=== PATIENT | male | born 2000 | race Caucasian/White ===

== ENCOUNTER 2023-01-27 15:10 | Emergency (ER) | payer BC, SELFPAY ==
[2023-01-27 15:21] VITALS: BP 163/94; PULSE 93; RESP 16; TEMP 37; O2SAT 99
--- NOTE | 2023-01-27 16:53 | ED.GENADULT ---
HPI - General Adult General Chief complaint: Skin/Abscess/Foreign Body Stated complaint: Foreign Body Left Eye Time Seen by Provider: 01/27/23 16:02 Source: patient Mode of arrival: ambulatory Limitations: no limitations History of Present Illness HPI narrative: This is a 22-year-old male who presents to the ED with chief complaint of left eye irritation beginning around 130 this afternoon. Patient states he was working on a truck when this happened. Reports he was pulling a bolt out with a drill and feels that it may have chipped off and went into the eye. He tried to flush it immediately with water at home which she thinks helped a little bit but he still having irritation. Denies any double vision, vision changes. Related Data Allergies Allergy/AdvReac Type Severity Reaction Status Date / Time No Known Allergies Allergy Verified 01/27/23 15:24 Review of Systems Review of Systems: All systems as dictated in HPI Exam Narrative: GENERAL: Well-appearing, well-nourished, and in no acute distress. HEAD: Normocephalic, atraumatic. EYES: Rolon lamp examination: Corneal abrasion at the 3 o'clock position. There is an obvious foreign body to the upper lateral lid of the left eye. Pressures of the eyes are normal. No rust ring. PERRLA and EOMI. ENT: Nares clear, no rhinorrhea or epistaxis. Mucous membranes moist. Oropharynx without tonsillar hypertrophy exudate or other lesions. NECK: Supple. No adenopathy or masses. CHEST: No respiratory distress. Clear to auscultation. No wheezes rales or rhonchi HEART: Regular rate and rhythm. No murmur heard. Normal peripheral pulses. ABDOMEN: Soft, nontender, nondistended, normal active bowel sounds. MSK: Normal range of motion. No edema. SKIN: Warm, dry, no rash. NEURO: Alert and oriented x3. No focal deficits. PSYCH: Normal mood and affect. Course Vital Signs Vital signs: Vital Signs Temperature 98.6 F 01/27/23 15:21 Pulse Rate 93 01/27/23 15:21 Respiratory Rate 16 01/27/23 15:21 Blood Pressure 163/94 H 01/27/23 15:21 Pulse Oximetry 99 01/27/23 15:21 Temperature 98.6 F 01/27/23 15:21 Pulse Rate 93 01/27/23 15:21 Respiratory Rate 16 01/27/23 17:12 Blood Pressure 163/94 H 01/27/23 15:21 Pulse Oximetry 99 01/27/23 15:21 Procedures FB Removal Eye Foreign Body #1: Foreign Body Removal Date: 01/27/23 Foreign Body Removal Time: 16:55 Time Out performed: No Location: eye (L) Topical anesthetic used: tetracaine Foreign body: metal Evidence of corneal penetration: Yes Technique: irrigation and cotton tip swab Procedure performed under: direct visualization with magnification Patient tolerated procedure: well and no complications Medical Decision Making MDM Narrative Medical decision making narrative: This is a 22-year-old male who presents to the ED for chief concern of a possible foreign body to the left eye. Was working on a car today and feels like a metal piece may be stuck. Exam reveals corneal abrasion and evidence of metallic foreign body in the upper lid. The metallic foreign body was removed during the Rolon lamp examination. Removed with Q-tip without complications. He had immediate symptomatic improvement with the tetracaine. Referral for [facility] for follow-up given. Symptoms consistent with corneal abrasion foreign body. No rust ring. He is not a contact lens wearer. Prescription for ofloxacin drops given. Pt will be discharged in stable condition. Return precautions given and supportive measures discussed. Pt is understanding and agreeable with plan for discharge and follow-up with PCP. Vital Signs Vital Signs: Vital Signs Temperature 98.6 F 01/27/23 15:21 Pulse Rate 93 01/27/23 15:21 Respiratory Rate 16 01/27/23 15:21 Blood Pressure 163/94 H 01/27/23 15:21 Pulse Oximetry 99 01/27/23 15:21 Temperature 98.6 F
[2023-01-27 17:12] VITALS: RESP 16
== END 2023-01-27 17:13 | disposition home or self-care (01) ==
PROVIDERS: Emergency Provider Physician Assistant; PCP Pediatrics Adolescent Medicine
DX: T15.12XA Foreign body in conjunctival sac, left eye, initial encounter (principal); S05.02XA Injury of conjunctiva and corneal abrasion without foreign body, left eye, initial encounter; W44.E9XA Other non-magnetic metal objects entering into or through a natural orifice, initial encounter
CPT/HCPCS: 65205; 99283; A9270

== ENCOUNTER 2023-05-07 21:12 | Emergency (ER) | payer BC, SELFPAY ==
--- NOTE | ~2023-05-07 | XR_ITS ---
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 RESULT: Lines, tubes, and devices: None. Lungs and pleura: Clear. Cardiomediastinal silhouette: Normal. Other: No acute osseous or upper abdominal finding. IMPRESSION: No acute cardiopulmonary process. Reviewed, dictated and finalized at location K. [employer] COMMISSIONING ENGINEER
[2023-05-07 21:22] VITALS: BP 180/95; PULSE 93; RESP 21; TEMP 36.4; O2SAT 100
--- NOTE | 2023-05-07 21:31 | ECG_ITS ---
Measurements Intervals [place] Rate: 91 P: 63 TN: 128 QRS: 70 QRSD: 122 T: 57 QT: 362 QTc: 445 Interpretive Statements SINUS RHYTHM ATRIAL PREMATURE COMPLEX INCOMPLETE RIGHT BUNDLE BRANCH BLOCK BORDERLINE ECG NO PREVIOUS ECG AVAILABLE FOR COMPARISON Electronically Signed On 05-08-2023 5:22:17 PRINTING SERVICES COORDINATOR by Chito Todd D.O.
[2023-05-07 22:00] LABS: Basophils Percent Auto 0.4 % (0.2-1.2); Eosinophils Absolute Auto 0.2 K/mm3 (0-0.3); Eosinophils Percent Auto 1.9 % (0-4.4); Hematocrit 46.7 % (42.0-52.0); Hemoglobin 15.4 g/dL (14.0-18.0); Immature Granulocyte Absolute 0.02 K/mm3 (0.00-0.031); Immature Granulocyte Percent A 0.3 % (0-0.5); Lymphocytes Absolute Auto 1.75 K/mm3 (0.9-3.2); Lymphocytes Percent Auto 22.3 % (18.3-44.2); Mean Corpuscular Hemoglobin 29.7 pg (26-34); Mean Platelet Volume 8.9 fl (7.4-10.4); Monocytes Absolute Auto 0.4 K/mm3 (0.1-0.6); Neutrophils Absolute Auto 5.5 K/mm3 (1.3-6.7); Neutrophils Percent Auto 70.1 % (45.5-73.1); Platelet Count Result 198 k/mm3 (150-375); Red Blood Count 5.19 M/mm3 (4.6-6.20); Red Cell Distribution Width 12.7 % (11.5-14.5); White Blood Count 7.8 K/mm3 (4.5-10.0)
[2023-05-07 22:12] LABS: Alanine Aminotransferase 34 U/L (6-50); Albumin Level 4.7 g/dL (3.5-5.1); Alkaline Phosphatase 58 U/L (38-126); Anion Gap 12 mmol/L (8-16); Aspartate Amino Transferase 33 U/L (17-59); Bilirubin,Total 0.8 mg/dL (0.2-1.3); Blood Urea Nitrogen 13 mg/dL (9-20); Calcium 9.3 mg/dL (8.4-10.2); Carbon Dioxide 24 mmol/L (22-30); Chloride 103 mmol/L (98-107); Estimated CRCL calculation 144 ml/min; Estimated Glomerular Filt Rate > 60; Glucose 101 mg/dL (65-110); Lipase 44 U/L (23-300); Sodium 139 mmol/L (137-145)
--- NOTE | 2023-05-07 22:19 | PC.NURSE ---
no ASA dose required at this time
[2023-05-07 22:21] LABS: Ethanol < 10 mg/dL (<10)
[2023-05-07 22:24] LABS: Troponin I < 0.012 ng/mL (0.000-0.034)
[2023-05-07 22:27] LABS: INR 1.1; Partial Thromboplastin Time 28.5 SECONDS (22.3-36.8); Prothrombin Time 14.7 Seconds (11.1-14.7)
--- NOTE | 2023-05-07 22:39 | ED.GENADULT ---
HPI - General Adult General Chief complaint: Unspecified Stated complaint: high blood pressure Time Seen by Provider: 05/07/23 22:06 Source: patient Mode of arrival: ambulatory Limitations: no limitations History of Present Illness HPI narrative: This is a 22 year old male that presents to the ER for high blood pressure. Reports today he started feeling nauseous, shaky and was having left shoulder pain. He took his blood pressure and it was elevated. Does report history of high blood pressure as a child. Reports he was able to come off of his medication. He does not currently have a PCP. Reports he now feels much better. Denies current chest pain, shortness of breath. Related Data Allergies Allergy/AdvReac Type Severity Reaction Status Date / Time No Known Allergies Allergy Verified 05/07/23 21:54 Review of Systems Review of Systems: CONSTITUTIONAL: Denies fever CARDIOVASCULAR: Denies chest pain, or edema. RESPIRATORY: Denies dyspnea. GASTROINTESTINAL: Denies vomiting All systems reviewed & are unremarkable except as noted in HPI and below PMFSH Past Medical History Medical History (Updated 05/08/23 @ 00:03 by Diana Jane PA-C) No active medical problems Social History Social History (Updated 05/07/23 @ 23:23 by Diana Jane PA-C) Smoking status: Current every day smoker Tobacco type: e-cigarettes/vaping and smokeless tobacco Exam Narrative: GENERAL: Well-appearing, well-nourished, and in no acute distress. HEAD: Normocephalic, atraumatic. EYES: EOMI. NECK: Supple. No JVD CHEST: Clear to auscultation. No respiratory distress. No wheezes rales or rhonchi HEART: Regular rate and rhythm. No murmur heard. Normal peripheral pulses. EXTREMITIES: Normal range of motion. No edema. SKIN: Warm, dry, no rash. NEURO: No focal deficits. Alert and oriented x3. PSYCH: Normal mood and affect Course Course Emergency Course: Patient and family updated on workup and agrees with plan of care Vital Signs Vital signs: Vital Signs Temperature 97.6 F 05/07/23 21:22 Pulse Rate 93 05/07/23 21:22 Respiratory Rate 21 H 05/07/23 21:22 Blood Pressure 180/95 H 05/07/23 21:22 Pulse Oximetry 100 05/07/23 21:22 Oxygen Delivery Room Air 05/07/23 21:22 Temperature 97.6 F 05/07/23 21:22 Pulse Rate 80 05/07/23 23:10 Respiratory Rate 13 05/07/23 23:10 Blood Pressure 138/88 05/07/23 23:10 Pulse Oximetry 100 05/07/23 23:10 Oxygen Delivery Room Air 05/07/23 21:22 Medical Decision Making MDM Narrative Medical decision making narrative: Patient presents to the ER for elevated blood pressure reading. Reports history of high blood pressure as a child, but had been able to come off of his antihypertensive. Blood pressure elevated to 180/95 upon arrival. This downtrended without intervention. Most recent blood pressure 138/88. Patient endorsing some left arm pain, nausea and feeling shaky. CBC and metabolic panel without concerning findings. TSH is normal. Chest x-ray without acute cardiopulmonary abnormality. EKG without concerning changes and baseline troponin is negative. Upon my evaluation his symptoms had resolved. Reports he had used quite a bit of nicotine prior to his symptoms starting. Encouraged to quit. He was also encouraged to continue to monitor his blood pressure at home and establish with a PCP. He was given warnings to return to the ER Differential Diagnosis Differential Diagnosis: hypertension, electrolyte derangement, dehydration, anxiety, drug adverse reaction Vital Signs Vital Signs: Vital Signs Temperature 97.6 F 05/07/23 21:22 Pulse Rate 93 05/07/23 21:22 Respiratory Rate 21 H 05/07/23 21:22 Blood Pressure 180/95 H 05/07/23 21:22 Pulse Oximetry 100 05/07/23 21:22 Oxygen Delivery Room Air 05/07/23 21:22 Temperature 97.6 F 05/07/23 21:22 Pulse Rate 80 05/07/23 23:10 Respiratory Rate 13 05/07/23 23:10 Blood Pressure 13
[2023-05-07 22:55] VITALS: BP 159/95; PULSE 72; RESP 16; O2SAT 98
[2023-05-07 23:00] LABS: Appearance Urine Clear (Clear); Bilirubin Urine Negative (Negative); Blood Urine Negative (Negative); Color Urine Yellow (Yellow); Glucose Urine UA Negative (Negative); Ketones Urine Negative (Negative); Leukocyte Esterase Ur Negative LEU/UL (Negative); Nitrate Urine Negative (Negative); Protein Urine Negative (Negative); Specific Grav Ur 1.006 (1.001-1.035); Urobilinogen Urine 0.2 mg/dL (<2.0); pH Urine 7.5 (5.0-9.0)
[2023-05-07 23:10] VITALS: BP 138/88; PULSE 80; RESP 13; O2SAT 100
[2023-05-07 23:20] LABS: Add Urine Microscopic? YES; RBC Urine 0-2 /hpf (0-2); Squamous Epithelial Cell Urine None seen /hpf (Few); WBC Urine None seen /hpf (0-3)
[2023-05-07 23:24] LABS: Amphetamine Screen Urine Negative (Negative); Barbiturate Screen Urine Negative (Negative); Benzodiazepines Screen Urine Negative (Negative); Cannabinoid Screen Urine Negative (Negative); Cocaine Screen Urine Negative (Negative); Methadone Screen Urine Negative (Negative); Opiate Screen Urine Negative (Negative); Phencyclidine Screen Urine Negative (Negative)
[2023-05-08 00:32] VITALS: BP 139/81; PULSE 73; RESP 15; O2SAT 98
== END 2023-05-08 00:33 | disposition home or self-care (01) ==
PROVIDERS: Emergency Medicine; Emergency Provider Physician Assistant
DX: R03.0 Elevated blood-pressure reading, without diagnosis of hypertension (principal)
CPT/HCPCS: 36415; 71046; 80053; 80307; 81001; 83690; 84443; 84484; 85025; 85610; 85730; 93005; 99284